=== PATIENT | male | born 1970 | race Caucasian/White ===

== ENCOUNTER 2017-01-31 19:52 | Emergency (ER) | payer OTHER ==
[~2017-01-31] VITALS: Ht 190.5 cm; Wt 119.0 kg
[~2017-01-31 19:52] MED LIST: CIPR-255 PO; CPR500 PO; METR250T PO; MISCCAP80 PO; MTR250 PO; OXYC-57 PO
[2017-01-31 20:00] VITALS: TEMP 36.7; Ht 190.5 cm; Wt 119.0 kg
[2017-01-31] MEDS ORDERED: ONDANSETRON INJ 2 MG/ML 2 ML VIAL IV STA (21:09)
[2017-01-31] MEDS ORDERED: SODIUM CHLORIDE 0.9% 1000ML 1,000 ML IV STA (21:09)
[2017-01-31] MEDS ORDERED: MoRPHine SULFATE 4 MG/ML 1 ML CARP\\VIAL IV PRN (21:15)
[2017-01-31] MEDS ORDERED: OPTIRAY 320 IV PRN (21:15)
[2017-01-31 21:35] LABS: BASO % 0.2 %; BASO ABS # 0.02 K/uL (0-0.2); COMPLETE YES; EOS % 1.2 %; HEMATOCRIT 44.3 % (42-52); IG% 0.1 %; LYMPH % 31.5 %; LYMPH ABS # 2.71 K/uL (1.2-3.4); MEAN CELL VOLUME 84.9 fL (80-100); MEAN CORPUSCULAR HEMOGLOBIN 29.1 pg (25-34); MEAN CORPUSCULAR HGB CONC 34.3 g/dl (32-36); MEAN PLATELET VOLUME 9.1 fL (7.4-10.4); PLATELET COUNT 287 K/uL (130-400); RED BLOOD COUNT 5.22 M/uL (4.7-6.1)
[2017-01-31 21:46] LABS: MANUAL MICROSCOPIC REQUIRED? NO; REVIEW REQ? NO; URINE APPEARANCE CLEAR (CLEAR); URINE BILIRUBIN NEG (NEG); URINE COLOR DK YELLOW; URINE NITRITE NEG (NEG); URINE PH 6.5 (4.5-7.5); URINE SPECIFIC GRAVITY 1.024 (1.000-1.030); UROBILINOGEN NEG (NEG)
[2017-01-31] MEDS ORDERED: IBUP-1050 PO (21:46)
[2017-01-31 21:49] LABS: BUN/CREATININE RATIO 13.9 (10-20); CALCIUM 8.8 mg/dl (8.5-10.1); POTASSIUM 3.8 mmol/L (3.5-5.1)
[2017-02-01] MEDS ORDERED: CIPR-255 PO (00:43)
[2017-02-01] MEDS ORDERED: CIPROFLOXACIN 500MG HOME PACK PO ONE ×2 (00:45→01:15)
[2017-02-01] MEDS ORDERED: METRONIDAZOLE 250 MG TAB PO STA ×2 (01:14)
[2017-02-01] MEDS ORDERED: METR-163 PO (01:18)
[2017-02-01] MEDS ORDERED: CIPR1TAB10 PO (01:18)
[2017-02-01] MEDS ORDERED: EMPTY 8 DRAM VIAL ONE (01:20)
[2017-02-01 01:32] VITALS: BP 112/81; PULSE 87; O2SAT 97
--- NOTE | 2017-02-01 06:47 | DIAGNOSTIC IMAGING REPORT ---
CT ABD/PELVIS IV AND ORAL CONT CLINICAL HISTORY: Central abdominal pain COMPARISON STUDY: 12/17/2013 TECHNIQUE: Following the IV administration of 92 mL of Optiray-320, CT scan of the abdomen and pelvis was performed from the lung bases to the proximal femurs. Images are reviewed in the axial, sagittal, and coronal planes. IV contrast was administered without complication. CT DOSE: 1239.37 mGy.cm FINDINGS: Lower chest: There are minor basilar atelectatic changes Liver: There is hepatic steatosis. No focal masses are visualized. Gallbladder: Cholelithiasis Spleen: Normal in size and attenuation. Pancreas: Unremarkable. Adrenal glands: Unremarkable. Kidneys: There is a 13 mm left renal calculus. Bowel: There are no transition zones to indicate bowel obstruction. The appendix appears normal. There is colonic diverticulosis. There is mild sigmoid wall thickening. A minimal colitis is suspected. Peritoneum: There is no intraperitoneal free air or abdominal ascites. There are fat-containing ventral hernias. Vasculature: The abdominal aorta is normal in course and caliber. Adenopathy: None. Pelvic viscera: The bladder, and pelvic viscera are unremarkable. Skeletal structures: No destructive osseous lesions are seen. IMPRESSION: 1. No evidence of bowel obstruction. No evidence of free air 2. Mild sigmoid wall thickening, consistent with a nonspecific inflammatory/infectious colitis or minimal diverticulitis 3. Fat-containing ventral hernias 4. Normal appendix 5. 13 mm left renal calculus 6. Cholelithiasis 7. Hepatic steatosis Electronically signed by: Jae Nieves M.D. 02/01/2017 6:45 AM Dictated Date/Time: 02/01/2017 6:39 AM
--- NOTE | 2017-02-01 15:00 | EMERGENCY ROOM VISIT NOTE ---
ED Visit Note First contact with patient: 20:44 Chief Complaint: Abdominal pain. History of Present Illness: Mr. Thrasher is a 46 year-old white male complaining of left mid quadrant abdominal pain. Historically patient reports in December 2013 patient had diverticulitis with abscess and perforation and required emergent surgery and the development of a ventral hernia since his surgery. Patient reports a gradual onset of left mid quadrant abdominal pain that started approximately approximately one week ago. He reports initially the pain was intermittent and mild in intensity. Over the last 2 days it discomfort much more severe. He's describing his pain as a sharp discomfort. He rates his discomfort 5/10. The pain does radiate around the abdomen and towards the thoracic back. He has not identified any aggravating or alleviating factors related to the pain. Associated with his pain he reports he has been having intermittent diarrhea that he describes as water and partially formed stool that is light brown in color. He has not taken any medications for his pain prior to arrival at the hospital. He does feel that there has been enlargement of his ventral hernia associated with his pain. He denies any associated fevers, chills, sweats, skin eruptions, skin color changes, skin color changes, upper respiratory tract symptoms, shortness of breath, chest pain, nausea, vomiting, constipation, rectal bleeding, black/ tarry stools, urinary symptoms, hematuria. Review of Systems: As noted above in history of present illness. All body systems were reviewed and found to be negative as noted above. Past Medical History: As previously noted. Current Medications: Ibuprofen. Allergies to Medications: Patient denies. Social History: Patient is currently employed; he lives with his and feels safe in his home environment; he denies tobacco and alcohol use. Physical Examination: Vital Signs: Date Time Temp Pulse Resp B/P (MAP) Pulse Ox O2 Delivery O2 Flow Rate FiO2 02/01/17 01:32 87 18 112/81 97 02/01/17 00:19 91 18 115/48 95 Room Air 01/31/17 22:05 91 18 126/65 95 Room Air 01/31/17 21:36 62 01/31/17 20:00 36.7 99 18 154/99 96 Room Air GENERAL: 46-year-old male in mild distress due to pain, nontoxic-appearing, afebrile and hemodynamically stable. NEUROLOGICAL: Awake, alert and oriented to person, place and time. Answering questions appropriately and following commands. Normal gait. Good hand eye coordination. SKIN: Warm, dry and pink. No soft tissue eruptions or trauma noted. HEENT: Atraumatic and normocephalic. PERRLA. Sclera white and conjunctiva pink. Oral cavity moist and pink. Pharynx is nonerythematous or edematous. Speech normal. No lymphadenopathy. Trachea midline. No jugular venous distention. BACK: No tenderness over the bony spine. No CVA tenderness. THORAX: Lungs sounds are clear to auscultation and equal bilaterally with symmetrical chest wall. No wheezing, rales or rhonchi. No crepitus, tenderness , subcutaneous air or deformities noted. HEART: Regular rate and rhythm. No gallops, rubs or murmurs are appreciated. ABDOMEN: Flat and soft with mild tenderness in the left mid quadrant area. This discomfort is not over his ventral hernia which is on the left side of the umbilicus and does extend slightly into the mid quadrant area. Positive bowel sounds in all quadrants. No guarding, rigidity or organomegaly. EXTREMITIES: Moves all extremities well on command and with purpose. All distal neurovascular statuses are intact and equal bilaterally. ED Course: Patient is assessed as noted above. Patient's medication list was reviewed. Laboratory Testing: Test 01/31/17 20:20 01/31/17 21:30 Range/Units White Blood Count 8.60 4.8-10.8 K/uL Red Blood Count 5.22 4.7-6.1 M/uL Hemoglobin 15.2 14.0-18.0 g/dL Hematocrit 44.3 42-52 % Mean Corpuscular Volume 84.9 80-100 fL Mean Corpuscular Hemoglobin 29.1 25-34 pg Mean Corpuscular Hemoglobin Concent 34.3 32-36 g/dl Platelet Count 287 130-400 K/uL Mean Platelet Volume 9.1 7.4-10.4 fL Neutrophils (%) (Auto) 60.0 % Lymphocytes (%) (Auto) 31.5 % Monocytes (%) (Auto) 7.0 % Eosinophils (%) (Auto) 1.2 % Basophils (%) (Auto) 0.2 % Neutrophils # (Auto) 5.16 1.4-6.5 K/uL Lymphocytes # (Auto) 2.71 1.2-3.4 K/uL Monocytes # (Auto) 0.60 0.11-0.59 K/uL Eosinophils # (Auto) 0.10 0-0.5 K/uL Basophils # (Auto) 0.02 0-0.2 K/uL RDW Standard Deviation 40.4 36.4-46.3 fL RDW Coefficient of Variation 13.1 11.5-14.5 % Immature Granulocyte % (Auto) 0.1 % Immature Granulocyte # (Auto) 0.01 0.00-0.02 K/uL Sodium Level 138 136-145 mmol/L Potassium Level 3.8 3.5-5.1 mmol/L Chloride Level 104 98-107 mmol/L Carbon Dioxide Level 28 21-32 mmol/L Anion Gap 6.0 3-11 mmol/L Blood Urea Nitrogen 14 7-18 mg/dl Creatinine 1.00 0.60-1.40 mg/dl Est Creatinine Clear Calc Drug Dose 129.7 ml/min Estimated GFR () 104.9 Estimated GFR (Non- 90.5 BUN/Creatinine Ratio 13.9 10-20 Random Glucose 84 70-99 mg/dl Calcium Level 8.8 8.5-10.1 mg/dl Total Bilirubin 0.6 0.2-1 mg/dl Direct Bilirubin 0.1 0-0.2 mg/dl Aspartate Amino Transf (AST/SGOT) 21 15-37 U/L Alanine Aminotransferase (ALT/SGPT) 34 12-78 U/L Alkaline Phosphatase 76 45-117 U/L Total Protein 7.7 6.4-8.2 gm/dl Albumin 4.0 3.4-5.0 gm/dl Lipase 197 73-393 U/L Urine Color DK YELLOW Urine Appearance CLEAR CLEAR Urine pH 6.5 4.5-7.5 Urine Specific Commodore 1.024 1.000-1.030 Urine Protein 1+ NEG Urine Glucose (UA) NEG NEG Urine Ketones 1+ NEG Urine Occult Blood 3+ NEG Urine Nitrite NEG NEG Urine Bilirubin NEG NEG Urine Urobilinogen NEG NEG Urine Leukocyte Esterase NEG NEG Urine WBC (Auto) 1-5 0-5 /hpf Urine RBC (Auto) >30 0-4 /hpf Urine Hyaline Casts (Auto) 1-5 0-5 /lpf Urine Epithelial Cells (Auto) 10-20 0-5 /lpf Urine Bacteria (Auto) NEG NEG Contrast Abdominal/Pelvic CT: Was reviewed by myself and read by the radiologist and shows wall thickening of a redundant sigmoid colon suggestive colitis or possible diverticulitis, no free air or abscess. Normal appearing appendix, no bowel obstruction, gallbladder is distended with cholelithiasis, hepatic steatosis, 1.5 cm lower pole left renal calculus and fat-containing ventral hernias. Patient was hydrated with normal saline and he received 4 mg of morphine IV and 4 mg of Zofran IV. Patient was reassessed multiple times during his stay in the emergency department. Patient's case was reviewed with Dr. Orellana; we agreed on diagnostic approach, treatment, disposition and plan. Patient was given 500 mg of ciprofloxacin and 500 mg of Flagyl by mouth for antibiotic coverage. Patient was educated about today's findings and instructed on his treatment plan ; he verbalizes understanding and agreement with this plan. Clinical Impression: Left-sided abdominal pain. Possible colitis or diverticulitis. Decision-Making: Initially my differential diagnosis I considered diverticulitis , kidney stone, pyelonephritis, bowel obstruction, colitis, gastroenteritis and other causes. Disposition: Patient discharged home in stable condition accompanied by his ; prior to departure he was reassessed and subjectively reported he was pain and symptom-free. Plan: Patient was prescribed Flagyl 500 mg 3 times a day for 10 days. Patient was prescribed ciprofloxacin 500 mg 2 times a day for 10 days. Patient was encouraged use ibuprofen or acetaminophen as needed for pain. Patient was encouraged to use a bland diet for the next 48 hours and stay well hydrated. Patient was encouraged to contact his PCP and request follow-up care and treatment for reevaluation in 24-36 hours. Patient was encouraged return the ED for worsening/uncontrolled pain, fevers, bloody stools, worsening diarrhea or any new/concerning symptoms.
[2017-03-18] MEDS ORDERED: CIPR-255 PO (08:49)
[2017-03-18] MEDS ORDERED: METR-163 PO (08:49)
== END 2017-02-01 01:32 | disposition home or self-care (01) ==
LOC: C.EDB 19:53 → C.EDC 02-01 01:32
DX: R10.9 Unspecified abdominal pain (principal); N20.0 Calculus of kidney; K43.9 Ventral hernia without obstruction or gangrene; K80.20 Calculus of gallbladder without cholecystitis without obstruction; K76.0 Fatty (change of) liver, not elsewhere classified

== ENCOUNTER → 2017-03-04 | Day surgery (SDC) | payer OTHER ==
[2017-02-26 10:09] VITALS: Ht 190.5 cm; Wt 120.5 kg
[~2017-03-04] VITALS: Ht 190.5 cm; Wt 120.5 kg
[~2017-03-04] MED LIST changes: +ATROPINE SULFATE 0.1 MG/ML 5ML SYR IV PRN; -CPR500 PO; +EpHEDrine SULFATE INJ 50 MG/ML AMP IV PRN; +LIDOCAINE HCL 2% 2 ML VIAL (20MG/ML) ONE; +METR-163 PO; -METR250T PO; -MISCCAP80 PO; -MTR250 PO; -OXYC-57 PO; +PROPOFOL IV EMULSION 10 MG/ML 20 ML VIAL IV ONE; +SODIUM CHLORIDE 0.9% 500ML 500 ML IV ONE
[2017-03-04 08:44] VITALS: TEMP 37
--- NOTE | 2017-03-04 08:48 | Endo History and Physical ---
History & Physical Date of Service: Mar 04, 2017. Chief Complaint: diverticulitis Referring Physician: Dr. Cirilo Cruz,Dr. Eyad Melgar History of Present Illness 46 yo CM who presents for colonoscopy secondary to diverticulitis. Past Surgical History Hx Cardiac Surgery: No Hx Internal Defibrillator: No Hx Pacemaker: No Hx Abdominal Surgery: Yes (ABDOMINAL ABCESS REMOVAL) Hx of Implantable Prosthesis: No Hx Post-Op Nausea and Vomiting: No Hx Cancer Surgery: No Hx Thoracic Surgery: No Hx Orthopedic: No Hx Urinary Tract Surgery: No Family History None Social History Smoking Status: Never Smoker Hx Substance Use: No Hx Alcohol Use: No Allergies Coded Allergies: No Known Allergies (Verified , 03/04/17) Current Medications Reported Home Medications Medications Dose Route/Sig Max Daily Dose Days Date Category No Active Prescriptions or Reported Medications Rx Vital Signs Weight (Kilograms): 120.45 Height (Feet): 6 Height (Inches): 3 Date Time Temp Pulse Resp B/P (MAP) Pulse Ox O2 Delivery O2 Flow Rate FiO2 03/04/17 08:44 37 75 16 135/83 (100) 96 Room Air Physical Exam General Appearance: WD/WN, no apparent distress Respiratory/Chest: Auscultation: breath sounds normal Cardiovascular: Heart Auscultation: RRR Abdomen: Bowel Sounds: normal Inspection & Palpation: soft, non-distended, no tenderness, guarding & rebound Assessment and Plan Assessment: 46 yo CM who presents for colonoscopy secondary to diverticulitis. Plan: Proceed with colonoscopy.
--- NOTE | 2017-03-04 09:59 | Discharge Instructions ---
Endoscopy Patient Instructions Date / Procedure(s) Performed Mar 04, 2017. Colonoscopy Allergy Information Coded Allergies: No Known Allergies (Verified , 03/04/17) Discharge Date / Findings Mar 04, 2017. Sigmoid colon polyp Sigmoid diverticulosis with stenosis Internal hemorrhoids Medication Instructions OK to resume all medications today as prescribed Reported Home Medications Medications Dose Route/Sig Max Daily Dose Days Date Category No Active Prescriptions or Reported Medications Rx Provider Instructions Activity Restrictions - No exercising or heavy lifting for 24 hours. - Do not drink alcohol the day of the procedure. - Do not drive a car or operate machinery until the day after the procedure. - Do not make any important decisions or sign important papers in 24 hours after the procedure. Following Day: - Return to full activity which may include returning to work/school. Diet Start your diet with liquids and light foods (jello, soup, juice, toast). Then eat your usual diet if not nauseated. Treatment For Common After Affects For mild abdominal pain, bloating, or excessive gas: - Rest - Eat lightly - Lie on right side Follow-Up Information Follow-up with Dr. Cirilo Cruz,Dr. Eyad Melgar as scheduled Anesthesia Information What You Should Know You have had a procedure that required some medicine to reduce anxiety and discomfort. This treatment is called moderate sedation. After receiving the treatment, you may be sleepy, but you will be able to breathe on your own. The effects of the treatment may last for several hours. Follow these instructions along with Activity/Diet recommendations noted above: * Do NOT do anything where dizziness or clumsiness would be dangerous. * Rest quietly at home today, then you can be up and about tomorrow. * Have a responsible person stay with you the rest of today. * You may have had an I.V. today. If so, you may take the dressing off later today. Recommendations Call your doctor if: * Trouble breathing * Continuous vomiting for more than 24 hours * Temperature above 101 degrees * Severe abdominal pain or bloating * Pain not relieved by pain medicine ordered * There is increased drainage or redness from any incision * A large amount of rectal bleeding greater than 2-3 tablespoons. (If you had a polyp/s removed or have hemorrhoids, a small amount of blood - from the rectum is to be expected.) * You have any unanswered questions or concerns. IN THE EVENT OF A SERIOUS EMERGENCY, GO TO THE NEAREST EMERGENCY ROOM Your discharge instructions were prepared by provider Elliot Berrios. Patient Instructions Signature Page Gael Thrasher Patient (or Guardian) Signature/Date: I have read and understand the instructions given to me by my caregivers. Caregiver/RN/Doctor Signature/Date: The above-named patient and/or guardian has received patient instructions on this date. + Original Patient Signature Page (only) stays with chart. Please make copy for patient.
--- NOTE | 2017-03-04 09:59 | GI REPORT ---
Procedure Date: 03/04/2017 8:56 AM Procedure: Colonoscopy Indications: Follow-up of diverticulitis Medicines: Monitored Anesthesia Care Complications: No immediate complications. Estimated Blood Loss: Estimated blood loss: none. Procedure: Pre-Anesthesia Assessment: - Prior to the procedure, a History and Physical was performed, and patient medications and allergies were reviewed. The patient's tolerance of previous anesthesia was also reviewed. The risks and benefits of the procedure and the sedation options and risks were discussed with the patient. All questions were answered, and informed consent was obtained. Prior Anticoagulants: The patient has taken no previous anticoagulant or antiplatelet agents. ASA Grade Assessment: II - A patient with mild systemic disease. After reviewing the risks and benefits, the patient was deemed in satisfactory condition to undergo the procedure. After I obtained informed consent, the scope was passed under direct vision. Throughout the procedure, the patient's blood pressure, pulse, and oxygen saturations were monitored continuously. The Scope was introduced through the anus and advanced to the cecum, identified by appendiceal orifice and ileocecal valve. The quality of the bowel preparation was good. The terminal ileum, ileocecal valve, appendiceal orifice, and rectum were photographed. The colonoscopy was performed with moderate difficulty due to bowel stenosis. Successful completion of the procedure was aided by changing the patient to a supine position and using manual pressure. The patient tolerated the procedure fairly well. Findings: Multiple small-mouthed diverticula were found in the sigmoid colon. There was luminal narrowing in the sigmoid colon. A 3 mm polyp was found in the sigmoid colon. The polyp was sessile. The polyp was removed with a cold biopsy forceps. Resection and retrieval were complete. Non-bleeding internal hemorrhoids were found during retroflexion. The hemorrhoids were small. Impression: - Diverticulosis in the sigmoid colon. - One 3 mm polyp in the sigmoid colon, removed with a cold biopsy forceps. Resected and retrieved. - Non-bleeding internal hemorrhoids. Recommendation: - Resume previous diet. - Continue present medications. - Repeat colonoscopy for surveillance based on pathology results. - Return to primary care physician as previously scheduled. Elliot Berrios DO 03/04/2017 9:58:35 AM This report has been signed electronically. Note Initiated On: 03/04/2017 8:56 AM I attest to the content of the Intraoperative Record and orders documented therein, exceptions below
--- NOTE | 2017-03-04 10:08 | Anesthesiology Progress Note ---
Anesthesia Post Op Note Date & Time Mar 04, 2017 at 10:08 Vital Signs Pain Intensity: 8 Vital Signs Past 12 Hours Date Time Temp Pulse Resp B/P (MAP) Pulse Ox O2 Delivery O2 Flow Rate FiO2 03/04/17 09:53 68 16 132/90 (104) 95 Room Air 03/04/17 08:44 37 75 16 135/83 (100) 96 Room Air Notes Mental Status: alert / awake / arousable, participated in evaluation Pt Amnestic to Procedure: Yes Nausea / Vomiting: adequately controlled Pain: adequately controlled Airway Patency, RR, SpO2: stable & adequate BP & HR: stable & adequate Hydration State: stable & adequate Anesthetic Complications: no major complications apparent
[2017-03-04 10:23] VITALS: BP 138/99; PULSE 70; O2SAT 100
== END | disposition home or self-care (01) ==
LOC: C.GI 07:46
PROVIDERS: ATTEND Internal Medicine
DX: D12.5 Benign neoplasm of sigmoid colon (principal); K57.30 Diverticulosis of large intestine without perforation or abscess without bleeding; Z87.19 Personal history of other diseases of the digestive system; K64.8 Other hemorrhoids

== ENCOUNTER → 2017-04-02 | Outpatient (CLI) | payer OTHER ==
[2017-04-01 17:35] LABS: BASO % 0.5 %; BASO ABS # 0.04 K/uL (0-0.2); BLOOD UREA NITROGEN 11 mg/dl (7-18); CALCIUM 9.2 mg/dl (8.5-10.1); CARBON DIOXIDE 30 mmol/L (21-32); CHLORIDE 102 mmol/L (98-107); COMPLETE YES; GLUCOSE 112 mg/dl (70-99); HEMATOCRIT 44.7 % (42-52); IG% 0.1 %; LYMPH % 23.6 %; LYMPH ABS # 2.06 K/uL (1.2-3.4); MEAN CELL VOLUME 85.5 fL (80-100); MEAN CORPUSCULAR HEMOGLOBIN 29.8 pg (25-34); MEAN CORPUSCULAR HGB CONC 34.9 g/dl (32-36); MEAN PLATELET VOLUME 9.8 fL (7.4-10.4); MONO % 3.9 %; NEUT % 70.9 %; PLATELET COUNT 342 K/uL (130-400); RED BLOOD COUNT 5.23 M/uL (4.7-6.1); SODIUM 138 mmol/L (136-145); WHITE BLOOD COUNT 8.74 K/uL (4.8-10.8)
[~2017-04-02] MED LIST changes: -ATROPINE SULFATE 0.1 MG/ML 5ML SYR IV PRN; -EpHEDrine SULFATE INJ 50 MG/ML AMP IV PRN; -LIDOCAINE HCL 2% 2 ML VIAL (20MG/ML) ONE; -PROPOFOL IV EMULSION 10 MG/ML 20 ML VIAL IV ONE; -SODIUM CHLORIDE 0.9% 500ML 500 ML IV ONE
== END | disposition home or self-care (01) ==
LOC: C.LABBFT 14:23
PROVIDERS: ATTEND Surgery
DX: K57.20 Diverticulitis of large intestine with perforation and abscess without bleeding (principal); K57.92 Diverticulitis of intestine, part unspecified, without perforation or abscess without bleeding; K43.9 Ventral hernia without obstruction or gangrene

== ENCOUNTER 2017-04-11 06:34 | Inpatient (IN) | payer OTHER ==
[2017-03-18 08:50] VITALS: BMI 33.0
[~2017-04-11] VITALS: Ht 190.5 cm; Wt 120.5 kg
[2017-04-11] VITALS (8 sets, daily range): BP systolic 114–134; BP diastolic 68–82; PULSE 85–111; TEMP 36.5–37.2; O2SAT 91–97; Ht 190.5 cm; Wt 120.5 kg
[~2017-04-11 06:34] MED LIST changes: +CEFAZOLIN 3000 MG/65 ML D5W IV SCH; +HEPARIN SOD 5000 UNIT/0.5 ML CARP SQ SCH; +LACTATED RINGER'S 1000ML 1,000 ML IV SCH
[2017-04-11] MEDS ORDERED: FENTANYL CITRATE INJ 50 MCG/1 ML 2 ML VIAL ONE ×6 (08:02→11:31)
[2017-04-11] MEDS ORDERED: MIDAZOLAM HCL 1 MG/ML 2ML VIAL ONE (08:02)
--- NOTE | 2017-04-11 08:02 | History & Physical Bridge Note ---
H&P Re-Evaluation Bridge Note: I have examined the patient, reviewed the History & Physical and in the interval since the performance of the History & Physical I have noted the following changes of clinical significance: No changes noted
[2017-04-11] MEDS ORDERED: BUPIVACAINE/EPINEPHRINE 0.5% MPF 1:200,000 10 ML VIAL ONE (08:10)
[2017-04-11] MEDS ORDERED: HYDROmorphone INJ 2 MG/ML SYR/VIAL IV PRN (08:30)
[2017-04-11] MEDS ORDERED: EpHEDrine SULFATE INJ 50 MG/ML AMP IV PRN (08:30)
[2017-04-11] MEDS ORDERED: ONDANSETRON INJ 2 MG/ML 2 ML VIAL IV PRN ×3 (08:30→11:45)
[2017-04-11] MEDS ORDERED: ATROPINE SULFATE 0.1 MG/ML 5ML SYR IV PRN (08:30)
[2017-04-11] MEDS ORDERED: PHENYLEPHRINE 100MCG/ML 5ML SYR IV PRN (08:30)
[2017-04-11] MEDS ORDERED: HYDROmorphone INJ 2 MG/ML SYR/VIAL ONE ×3 (09:43→11:25)
[2017-04-11] MEDS ORDERED: LIDOCAINE HCL 2% 2 ML VIAL (20MG/ML) ONE (09:45)
[2017-04-11] MEDS ORDERED: DEXAMETHASONE SOD INJ 4 MG/ML VIAL ONE (09:45)
[2017-04-11] MEDS ORDERED: PROPOFOL IV EMULSION 10 MG/ML 20 ML VIAL IV ONE (09:45)
[2017-04-11] MEDS ORDERED: ROCURONIUM BROMIDE 10 MG/ML 5 ML VIAL IV ONE ×4 (09:45→11:19)
[2017-04-11] MEDS ORDERED: PHENYLEPHRINE 100MCG/ML 5ML SYR ONE (09:45)
[2017-04-11] MEDS ORDERED: ONDANSETRON INJ 2 MG/ML 2 ML VIAL ONE ×2 (09:45→11:29)
[2017-04-11] MEDS ORDERED: ALBUMIN HUMAN 5% 12.5 GM/250 ML VIAL IV ONE (10:12)
[2017-04-11] MEDS ORDERED: ESMOLOL HCL 10 MG/ML 10 ML VIAL ONE (11:29)
[2017-04-11] MEDS ORDERED: NEOSTIGMINE METHYLSULFATE 5 MG/5 ML SYR ONE (11:29)
[2017-04-11] MEDS ORDERED: GLYCOPYRROLATE INJ 0.2 MG/ML VIAL ONE (11:29)
[2017-04-11] MEDS ORDERED: NALOXONE HCL 0.4 MG/1 ML VIAL/CARP IV PRN (11:45)
[2017-04-11] MEDS ORDERED: METOPROLOL TARTRATE 1 MG/ML VIAL ONE (11:56)
[2017-04-11] MEDS ORDERED: HYDROmorphone HCL 0.5MG/ML 50 ML CASSETTE ONE (11:57)
--- NOTE | 2017-04-11 12:05 | [facility] Operative Report ---
Operative Report Operative Date Apr 11, 2017. Pre-Operative Diagnosis Abcess of Sigmoid Colon Due to Diverticulitis, Ventral Hernia Post-Operative Diagnosis Abcess of Sigmoid Colon Due to Diverticulitis, Ventral Hernia Procedure(s) Performed Laparoscopic Sigmoid Colectomy, Ventral Hernia Repair, Enterolysis Surgeon Dr Nj Cruz Cutter Grinder Operator Surgeon(s) Andrae Vela PA-C Estimated Blood Loss 500cc Findings chronically inflammed/thickened sigmoid colon;adhesions; ventral incisional hernia Specimens As Per Surgeon A. Descending Sigmoid Colon Anesthesia GET Complication(s) None Disposition Recovery Room / PACU Description of Procedure After informed consent was obtained the patient was taken to the operating suite and placed in supine position. After successful intubation a Winchester catheter was placed and the patient was placed in the low lithotomy position. The abdomen was shaved and sterilely prepped and draped. The perineum was sterilely prepped prepped and draped with a Betadine solution as well. We began by making an infraumbilical incision through his old scar line with 11 blade scalpel. We carried this down through the soft tissue using electrocautery. We opened the anterior rectus fascia electrocautery and placed 2 #0 Vicryl stay sutures. Peritoneum was entered using blunt finger penetration and a finger sweep was performed. A 12 mm Sage trocar was placed and the abdomen was insufflated to 20 mmHg. The laparoscope was inserted and the abdomen was examined in 360. At the superior pole of his prior incision there was a visible hernia. There was also some adhesions throughout the lower abdomen from his prior diverticulitis. We placed a right lower quadrant 12 mm port and a right midabdominal 5 mm port and a left lower quadrant 5 mm port all under direct vision. The patient was then placed a Trendelenburg position and slightly airplane to the right. We began by mobilizing sigmoid colon. There is a very obvious area of enlargement with chronic inflammation fat wrapping thickened mesentery and phlegmon. This did make mobilization somewhat difficult. We began above this area and opened the white line of Toldt using the Harmonic scalpel. Throughout the case as we went there were different adhesions from small bowel /omentum and large bowel we had to take down. Eventually we were able to mobilize the left colon almost up to the splenic flexure. We then continued down the white line of Toldt distally to the peritoneal reflection. It did take some blunt dissection to free up the area of inflamed sigmoid colon. Once we had the colon relatively mobilized I picked a nice spot of colon distal to the area of inflammation create a small window in the mesentery using blunt dissection. A SY purple cartridge 60 mm stapler was then used to transect the colon distal to the area of inflammation. Once this was done I then used traction countertraction and the Harmonic scalpel to take down the mesentery of the left colon. Once we had it mobilized well above the area of inflammation we then grasped with a grasper and pulled it up to the left lower quadrant incision. At this point we shut off the gas and desufflated the abdomen. I extended the left lower quadrant incision with a new 10 blade scalpel and carried down through the soft tissue using electrocautery. The fascia of the muscle was opened using electrocautery. We split the muscle were eventually able to deliver the colon out through this incision. We were then able to clamp the bowel proximal to this area and incised it with a heavy scissor. We passed it off as specimen. We then used 2- 0 silk to create a pursestring suture around the bowel. We then used sizers. It was a relatively small lumen and we estimated the size to be a 25 mm stapler. The anvil of this 25 mm staplers placed in the end and the pursestring used to secure it. We did free up some fat around the end of it and then dunked it back into the abdominal cavity. We then closed the fascia using 0 PDS in a running fashion. We then exchanged our gloves. We then reinsufflated the abdomen. There was a fair amount of blood in the lower abdomen from a bleeding point of the mesentery of the rectal stump. I was able to control this using Harmonic scalpel. I then thoroughly irrigated and suctioned out all the blood. We then used sizers to come in through the rectal stump. We then brought the handle of the circular stapler in through the rectal stump. Just anterior to the staple line we were able to deploy the spike. We then connected the handle to the anvil and secured them together. We fired it creating a circular functional end-to-end anastomosis. There was no tension on the anastomosis and it laid nicely down in the pelvis. We then insufflated the anastomosis under water with a rigid sigmoidoscope. There was no evidence for any anastomotic leak. We performed a final irrigation. At the end of the procedure there was adequate hemostasis. A 10 flat Cameron-Newton drain was brought in through one of the right-sided trochars and was placed in the pelvis. It was secured to the skin using 2-0 silk. One final look around the abdomen showed no other abnormalities other than the ventral hernia. We then removed all the trochars and desufflated the abdomen. We closed the camera port using 0 Vicryl fin [id number] fashion. Our Attention then turned to the superior pole of his prior open incision. Made a small incision directly over the palpable hernia and carried this down through the soft tissue using electrocautery. There was a large hernia sac we opened up and excised. There was some omentum incarcerated within the hernia which we freed up and dunked back down into the abdominal cavity. The hernia itself was probably only 2-3 cm. We freed up the edges and grasped using Joanna clamps. I closed with #1 PDS in interrupted [id number] fashion. Because of the dirty colon resection I opted not to use mesh. It was relatively tension free. I thoroughly irrigated this wound and closed with 2-0 Vicryl and then 3-0 Monocryl. The Left lower quadrant incision was also irrigated and closed with 2-0 Vicryl and 3-0 Monocryl. Smaller incisions were closed with 4- 0 Monocryl. Marcaine with epinephrine were injected injected around all the incision for postoperative analgesia and sterile dressings were applied. Patient was awaken extubated and transferred recovery in stable condition I attest to the content of the Intraoperative Record and any orders documented therein. Any exceptions are noted below.
--- NOTE | 2017-04-11 13:11 | Anesthesiology Progress Note ---
Anesthesia Post Op Note Date & Time Apr 11, 2017 at 13:11 Vital Signs Pain Intensity: 0.0 Vital Signs Past 12 Hours Date Time Temp Pulse Resp B/P (MAP) Pulse Ox O2 Delivery O2 Flow Rate FiO2 04/11/17 12:50 94 Nasal Cannula 2.0 04/11/17 12:50 36.6 89 17 129/77 (94) 94 Nasal Cannula 2.0 04/11/17 12:40 36.1 86 16 126/90 95 Nasal Cannula 2 04/11/17 12:30 83 16 141/83 93 Nasal Cannula 2 04/11/17 12:20 84 16 138/91 94 Mask 5 04/11/17 12:10 81 16 136/95 99 Mask 10 04/11/17 12:00 87 16 141/97 99 Mask 15 04/11/17 11:49 36.8 94 16 148/91 99 Mask 15 04/11/17 07:03 37.2 85 20 134/80 95 Room Air Notes Mental Status: alert / awake / arousable, participated in evaluation Pt Amnestic to Procedure: Yes Nausea / Vomiting: adequately controlled Pain: adequately controlled Airway Patency, RR, SpO2: stable & adequate BP & HR: stable & adequate Hydration State: stable & adequate Anesthetic Complications: no major complications apparent
[2017-04-11] MEDS: SODIUM CHLORIDE 0.9% 1000ML 1,000 ML IV SCH (13:47)
[2017-04-11] MEDS: ACETAMINOPHEN IV 100 ML IV SCH ×3 (13:47→21:38)
[2017-04-11] MEDS: LACTATED RINGER'S 1000ML 1,000 ML IV SCH ×2 (13:49→17:53)
[2017-04-11] MEDS: CEFOXITIN IV 2,000 MG in DEXTROSE 5% 50ML 50 ML IV SCH ×2 (14:22→20:22)
[2017-04-11] MEDS: HYDROmorphone HCL 0.5MG/ML 50 ML CASSETTE IV PRN (18:50)
[2017-04-12] MEDS: LACTATED RINGER'S 1000ML 1,000 ML IV SCH ×4 (00:33→20:23)
[2017-04-12] MEDS: CEFOXITIN IV 2,000 MG in DEXTROSE 5% 50ML 50 ML IV SCH (02:26)
[2017-04-12 03:38] VITALS: BP 109/64; PULSE 86; TEMP 36.8; O2SAT 93
[2017-04-12 06:45] LABS: BASO % 0.1 %; BASO ABS # 0.01 K/uL (0-0.2); COMPLETE YES; EOS % 0.2 %; IG% 0.2 %; LYMPH % 22.8 %; LYMPH ABS # 2.15 K/uL (1.2-3.4); MEAN CELL VOLUME 86.2 fL (80-100); MEAN CORPUSCULAR HEMOGLOBIN 28.6 pg (25-34); MEAN CORPUSCULAR HGB CONC 33.1 g/dl (32-36); MEAN PLATELET VOLUME 9.4 fL (7.4-10.4); MONO % 10.1 %; NEUT % 66.6 %; PLATELET COUNT 226 K/uL (130-400); RED BLOOD COUNT 4.06 M/uL (4.7-6.1); WHITE BLOOD COUNT 9.44 K/uL (4.8-10.8)
[2017-04-12 06:57] VITALS: BP 122/72; PULSE 86; TEMP 36.9; O2SAT 94
[2017-04-12] MEDS: HYDROmorphone HCL 0.5MG/ML 50 ML CASSETTE IV PRN ×3 (07:04→23:03)
[2017-04-12 07:25] LABS: CALCIUM 8.6 mg/dl (8.5-10.1); CREATININE 0.89 mg/dl (0.60-1.40)
[2017-04-12] MEDS: ENOXAPARIN 40 MG/0.4 ML SYR SQ SCH (08:03)
--- NOTE | 2017-04-12 08:08 | Surgery Progress Note ---
Surgery Progress Note Date of Service Apr 12, 2017. Subjective Post OP Day: 1 + feeling well, + pain controlled (PRIZE JACKER, Ofirmev), + diet (ice), No nausea Objective Vital Signs: Date Time Temp Pulse Resp B/P (MAP) Pulse Ox O2 Delivery O2 Flow Rate FiO2 04/12/17 06:57 36.9 86 16 122/72 (89) 94 Room Air 04/12/17 03:38 36.8 86 17 109/64 (79) 93 Room Air 04/11/17 22:45 37.2 111 17 114/68 (83) 93 Room Air 04/11/17 20:10 Room Air 04/11/17 19:46 36.8 104 18 123/70 (87) 95 Room Air 04/11/17 17:45 96 Room Air 04/11/17 15:48 36.6 105 18 131/77 (95) 97 Nasal Cannula 2.0 04/11/17 13:56 96 18 127/82 (97) 91 Nasal Cannula 2.0 04/11/17 13:20 36.5 92 18 127/76 (93) 95 Nasal Cannula 2.0 04/11/17 12:50 94 Nasal Cannula 2.0 04/11/17 12:50 95 Nasal Cannula 2.0 04/11/17 12:50 36.6 89 17 129/77 (94) 94 Nasal Cannula 2.0 04/11/17 12:40 36.1 86 16 126/90 95 Nasal Cannula 2 04/11/17 12:30 83 16 141/83 93 Nasal Cannula 2 04/11/17 12:20 84 16 138/91 94 Mask 5 04/11/17 12:10 81 16 136/95 99 Mask 10 04/11/17 12:00 87 16 141/97 99 Mask 15 04/11/17 11:49 36.8 94 16 148/91 99 Mask 15 Physical Exam: AISHA drainage (20 cc overnight) Abdomen: non distended, soft Incision(s): intact (dressing) Laboratory Results: Results Past 24 Hours Test 04/12/17 06:21 Range/Units White Blood Count 9.44 4.8-10.8 K/uL Red Blood Count 4.06 4.7-6.1 M/uL Hemoglobin 11.6 14.0-18.0 g/dL Hematocrit 35.0 42-52 % Mean Corpuscular Volume 86.2 80-100 fL Mean Corpuscular Hemoglobin 28.6 25-34 pg Mean Corpuscular Hemoglobin Concent 33.1 32-36 g/dl Platelet Count 226 130-400 K/uL Mean Platelet Volume 9.4 7.4-10.4 fL Neutrophils (%) (Auto) 66.6 % Lymphocytes (%) (Auto) 22.8 % Monocytes (%) (Auto) 10.1 % Eosinophils (%) (Auto) 0.2 % Basophils (%) (Auto) 0.1 % Neutrophils # (Auto) 6.29 1.4-6.5 K/uL Lymphocytes # (Auto) 2.15 1.2-3.4 K/uL Monocytes # (Auto) 0.95 0.11-0.59 K/uL Eosinophils # (Auto) 0.02 0-0.5 K/uL Basophils # (Auto) 0.01 0-0.2 K/uL RDW Standard Deviation 43.3 36.4-46.3 fL RDW Coefficient of Variation 13.7 11.5-14.5 % Immature Granulocyte % (Auto) 0.2 % Immature Granulocyte # (Auto) 0.02 0.00-0.02 K/uL Prothrombin Time 11.0 9.0-12.0 SECONDS Prothromb Time International Ratio 1.0 0.9-1.1 Activated Partial Thromboplast Time 26.3 21.0-31.0 SECONDS Partial Thromboplastin Ratio 1.0 Sodium Level 139 136-145 mmol/L Potassium Level 4.0 3.5-5.1 mmol/L Chloride Level 105 98-107 mmol/L Carbon Dioxide Level 28 21-32 mmol/L Anion Gap 6.0 3-11 mmol/L Blood Urea Nitrogen 10 7-18 mg/dl Creatinine 0.89 0.60-1.40 mg/dl Est Creatinine Clear Calc Drug Dose 146.6 ml/min Estimated GFR () 119.7 Estimated GFR (Non- 103.3 BUN/Creatinine Ratio 11.0 10-20 Random Glucose 83 70-99 mg/dl Calcium Level 8.6 8.5-10.1 mg/dl Assessment & Plan s/p lap sigmoid colectomy mild anemia (blood loss + dilutional), will follow H&H Cont PRIZE JACKER/Ofirmev Lovenox to start this AM consider removing avina later seen with Dr. Cruz as above. doing well. pain control adequate Dr. Beal covering for weekend.
--- NOTE | 2017-04-12 08:49 | Anesthesiology Progress Note ---
Anesthesia Post Op Note Date & Time Apr 12, 2017 at 08:49 Vital Signs Pain Intensity: 0.0 Vital Signs Past 12 Hours Date Time Temp Pulse Resp B/P (MAP) Pulse Ox O2 Delivery O2 Flow Rate FiO2 04/12/17 06:57 36.9 86 16 122/72 (89) 94 Room Air 04/12/17 03:38 36.8 86 17 109/64 (79) 93 Room Air 04/11/17 22:45 37.2 111 17 114/68 (83) 93 Room Air Notes Mental Status: alert / awake / arousable, participated in evaluation Pt Amnestic to Procedure: Yes Nausea / Vomiting: adequately controlled Pain: adequately controlled Airway Patency, RR, SpO2: stable & adequate BP & HR: stable & adequate Hydration State: stable & adequate Anesthetic Complications: no major complications apparent
[2017-04-12 11:07] VITALS: BP 113/72; PULSE 74; TEMP 36.8; O2SAT 96
[2017-04-12] MEDS: SODIUM CHLORIDE 0.9% 1000ML 1,000 ML IV SCH (11:36)
[2017-04-12] MEDS: ACETAMINOPHEN IV 1,000 MG in EMPTY BAG 0 ML IV SCH ×2 (11:53→20:23)
[2017-04-12 14:52] VITALS: BP 121/74; PULSE 84; TEMP 36.7; O2SAT 94
[2017-04-12 19:06] VITALS: BP 143/80; PULSE 84; TEMP 36.9; O2SAT 92
[2017-04-13 00:02] VITALS: BP 123/75; PULSE 80; TEMP 36.4; O2SAT 94
[2017-04-13] MEDS: LACTATED RINGER'S 1000ML 1,000 ML IV SCH ×4 (03:07→23:26)
[2017-04-13] MEDS: ACETAMINOPHEN IV 1,000 MG in EMPTY BAG 0 ML IV SCH (03:08)
[2017-04-13 03:46] VITALS: BP 139/84; PULSE 77; TEMP 36.3; O2SAT 94
[2017-04-13 06:34] LABS: BASO % 0.3 %; BASO ABS # 0.02 K/uL (0-0.2); COMPLETE YES; EOS % 1.1 %; HEMATOCRIT 34.7 % (42-52); IG% 0.3 %; LYMPH % 20.7 %; LYMPH ABS # 1.49 K/uL (1.2-3.4); MEAN CELL VOLUME 86.1 fL (80-100); MEAN CORPUSCULAR HEMOGLOBIN 29.3 pg (25-34); MEAN PLATELET VOLUME 9.3 fL (7.4-10.4); MONO % 10.6 %; PLATELET COUNT 195 K/uL (130-400); RED BLOOD COUNT 4.03 M/uL (4.7-6.1); WHITE BLOOD COUNT 7.19 K/uL (4.8-10.8)
[2017-04-13 07:00] LABS: BUN/CREATININE RATIO 10.6 (10-20); CALCIUM 8.7 mg/dl (8.5-10.1); CREATININE 0.8 mg/dl (0.60-1.40); POTASSIUM 3.8 mmol/L (3.5-5.1)
[2017-04-13] MEDS: HYDROmorphone HCL 0.5MG/ML 50 ML CASSETTE IV PRN ×3 (07:08→22:58)
[2017-04-13 07:25] VITALS: BP 134/79; PULSE 75; TEMP 36.3; O2SAT 95
[2017-04-13] MEDS ORDERED: ACETAMINOPHEN IV 100 ML IV PRN (08:00)
[2017-04-13] MEDS: ENOXAPARIN 40 MG/0.4 ML SYR SQ SCH (10:44)
[2017-04-13] MEDS: SODIUM CHLORIDE 0.9% 1000ML 1,000 ML IV SCH (11:10)
--- NOTE | 2017-04-13 11:32 | PROGRESS NOTE ---
DATE: 04/13/[address] Cruz. Gael is second postoperative day status post a low anterior resection for diverticular problem. The patient is doing well. He is walking around without any problem. His last vitals showed a temperature of 36.3, pulse 75, respirations 14, blood pressure 134/79, O2 sats 95 on room air. I&O, he has had a small bowel movement this morning. He is voiding without problems. His abdomen is negative. The incision looks fine. His Rolando drainage is only 15 mL. Laboratory vasquez, his hemoglobin is 11.8, WBC 7.19, there is no left shift. BUN 9, creatinine 0.80. At this point, we will increase his diet. Depending on how he does clinically, he certainly may be able to be discharged tomorrow.
[2017-04-13 15:24] VITALS: BP 129/84; PULSE 80; TEMP 36.8; O2SAT 96
[2017-04-13 19:19] VITALS: BP 136/91; PULSE 94; TEMP 37.1; O2SAT 95
[2017-04-13 22:52] VITALS: BP 129/80; PULSE 86; TEMP 36.8; O2SAT 95
[2017-04-14 03:36] VITALS: BP 144/81; PULSE 78; TEMP 36.7; O2SAT 96
[2017-04-14] MEDS: LACTATED RINGER'S 1000ML 1,000 ML IV SCH (05:43)
[2017-04-14 06:18] LABS: BASO % 0.1 %; BASO ABS # 0.01 K/uL (0-0.2); COMPLETE YES; EOS % 1.6 %; HEMATOCRIT 38.3 % (42-52); IG% 0.3 %; LYMPH ABS # 1.76 K/uL (1.2-3.4); MEAN CELL VOLUME 85.7 fL (80-100); MEAN CORPUSCULAR HEMOGLOBIN 29.1 pg (25-34); MEAN CORPUSCULAR HGB CONC 33.9 g/dl (32-36); MEAN PLATELET VOLUME 9.4 fL (7.4-10.4); PLATELET COUNT 253 K/uL (130-400); RED BLOOD COUNT 4.47 M/uL (4.7-6.1)
--- NOTE | 2017-04-14 06:18 | Discharge Instructions ---
Discharge Instructions Date of Service Apr 14, 2017. Admission Reason for Admission: Abscess Of Sigmoid Colon D/T Diverticulitis, Ventr Discharge Discharge Diagnosis / Problem: s/p colon resection path pending Discharge Goals Goal(s): Decrease discomfort Activity Recommendations Activity Limitations: as noted below (no driving for 3 days, no lifting greater than 10 lbs) Lifting Limitations: no more than 10 pounds May Resume Sexual Activity: when tolerated Shower/Bathe: no limitations Driving or Machine Use: resume 3 days after discharge . Instructions / Follow-Up Instructions / Follow-Up call [phone] for any problems and f/u with Dr Cruz 1 week(call for tj) Current Hospital Diet Patient's current hospital diet: Clear Liquid Diet Discharge Diet Recommended Diet: Low Fiber Diet Procedures Procedures Performed: Laparoscopic Sigmoid Colectomy, Ventral Hernia Repair, Enterolysis Pending Studies Studies pending at discharge: no Medical Emergencies . Who to Call and When: Medical Emergencies: If at any time you feel your situation is an emergency, please call 911 immediately. . Non-Emergent Contact Non-Emergency issues call your: Primary Care Provider . "Provider Documentation" section prepared by Cleveland Beal. . VTE Core Measure Inpt VTE Proph given/why not?: Enoxaparin (Lovenox)SQ
--- NOTE | 2017-04-14 06:24 | PROGRESS NOTE ---
DATE: 04/14/2017 SUBJECTIVE: Gael is 3rd postoperative day status post sigmoid colon resection. He has done very well, he has had multiple bowel movements and he is tolerating a diet. The path report is still pending. OBJECTIVE: His last vitals showed a temperature of 36.7, pulse 78, respirations 16, blood pressure 144/81, O2 sats 96% on room air. I&O is fairly balanced. The Rolando drainage is minimal, has reported as 5 mL overnight, it is serous, slightly sanguineous, I would leave it in at this time. His abdomen is completely benign, the incisions looked fine. LABORATORY STUDIES: This morning the lab is pending. IMPRESSION AND PLAN: At this point, the patient could be discharged and instructed to return to our office in 1 week. He should not lift anything heavier than 10 [address] not drive for first few days only a short distance after . He is virtually having minimal pain; therefore, I recommend that he takes some Motrin or Advil for pain. Call our office if there is any problem and to call our office to make an appointment to see Dr. Cruz.
[2017-04-14] MEDS: HYDROmorphone HCL 0.5MG/ML 50 ML CASSETTE IV PRN (07:01)
[2017-04-14 07:02] LABS: BUN/CREATININE RATIO 6.1 (10-20); CALCIUM 8.9 mg/dl (8.5-10.1); CREATININE 0.83 mg/dl (0.60-1.40); POTASSIUM 3.5 mmol/L (3.5-5.1)
[2017-04-14 07:05] VITALS: BP 149/77; PULSE 81; TEMP 36.8; O2SAT 96
[2017-04-14] MEDS: ENOXAPARIN 40 MG/0.4 ML SYR SQ SCH (08:30)
[2017-04-14 08:53] VITALS: BP 149/77; PULSE 81; TEMP 36.8; O2SAT 96
--- NOTE | 2017-04-16 10:26 | DISCHARGE SUMMARY ---
PRIMARY DISCHARGE DIAGNOSES: 1. Diverticulitis of sigmoid colon with abscess. 2. Ventral hernia. PROCEDURE PERFORMED: Laparoscopic sigmoid colectomy with enterolysis and open ventral hernia repair. HOSPITAL COURSE: The patient is a 46-year-old male with complicated diverticulitis, admitted through same day and taken to the operating room for laparoscopic sigmoid colectomy. He also had an incisional hernia which we repaired primarily. The procedure was well tolerated. He was transferred to the surgical floor. He was kept on perioperative antibiotics. Lovenox was started on postoperative day 1 for DVT prophylaxis along with SCDs already in use. His pain is well controlled with Dilaudid PLASTICS FABRICATOR OR WELDER and IV acetaminophen. He is able to begin a liquid diet on postoperative day 1. He had no problems voiding once his Winchester was removed. Over the next 2 days, he was able to tolerate an advancing diet. By day 3 was having minimal pain. He had several bowel movements. He was tolerating regular diet. Incision was benign. His AISHA drain was 5 mL overnight. He was stable for discharge on postoperative day 3. DISCHARGE INSTRUCTIONS: Discharge home with the AISHA. Follow up in the office next week for removal of the drain. DISCHARGE MEDICATIONS: He may use [id number] Tylenol or ibuprofen as needed for pain. ALEJANDRA
== END 2017-04-14 09:20 | disposition home or self-care (01) | DRG 330 ==
LOC: C.ACU 06:34 → C.MSW 11:44 → ENRESERV 12:22
PROVIDERS: ADMIT Surgery; ATTEND Surgery
PROC: 0DBN4ZZ Excision of Sigmoid Colon, Percutaneous Endoscopic Approach (ICD-10-PCS; principal; 2017-04-11 08:15)
PROC: 0DNN4ZZ Release Sigmoid Colon, Percutaneous Endoscopic Approach (ICD-10-PCS; principal; 2017-04-11 08:15)
PROC: 0WQF0ZZ Repair Abdominal Wall, Open Approach (ICD-10-PCS; principal; 2017-04-11 08:15)
DX: K57.20 Diverticulitis of large intestine with perforation and abscess without bleeding (principal); D62 Acute posthemorrhagic anemia; K43.2 Incisional hernia without obstruction or gangrene; K66.0 Peritoneal adhesions (postprocedural) (postinfection); E66.9 Obesity, unspecified; Z68.33 Body mass index [BMI] 33.0-33.9, adult; Z79.899 Other long term (current) drug therapy